=== PATIENT | female | born 2000 | race Caucasian/White ===

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

== ENCOUNTER 2019-01-04 18:06 | Emergency (ER) | payer MEDICAID ==
[~2019-01-04] VITALS: Ht 165.1 cm; Wt 214.0 kg
[2019-01-04 19:01] LABS: BASOPHILS % (AUTO) 0.3 % (0-1); EOSINOPHILS % (AUTO) 0.2 % (0-6); HEMATOCRIT 41.3 % (35.0-45.0); HEMOGLOBIN 14.2 g/dl (12.0-16.0); LYMPHOCYTES # (AUTO) 1.6 X10'3 (1.1-4.8); LYMPHOCYTES % (AUTO) 16.7 % (21-51); MEAN CORPUSCULAR HEMOGLOBIN 29.7 PG (27.0-31.0); MEAN CORPUSCULAR HGB CONC 34.4 g/dL (33.0-36.5); MEAN CORPUSCULAR VOLUME 86.2 FL (78-98); MEAN PLATELET VOLUME 8.1 FL (7.4-10.4); MONOCYTES # (AUTO) 0.3 X10'3 (0-0.9); MONOCYTES % (AUTO) 3.4 % (2-12); NEUTROPHILS # (AUTO) 7.6 X10'3 (1.8-7.7); NEUTROPHILS % (AUTO) 79.4 % (42-75); PLATELET COUNT 261 X10'3 (140-440); RED BLOOD COUNT 4.79 X10'6 (4.20-5.60); RED CELL DISTRIBUTION WIDTH 13.1 % (11.5-14.5); WHITE BLOOD COUNT 9.6 X10'3 (4.5-11.0)
[2019-01-04 19:15] LABS: ALANINE AMINOTRANSFERASE 26 U/L (12-78); ALBUMIN 4.3 G/DL (3.4-5.0); ANION GAP 7 (8-16); ASPARTATE AMINO TRANSFERASE 17 U/L (10-37); BILIRUBIN,TOTAL 0.5 MG/DL (0.1-1.0); BLOOD UREA NITROGEN 9 MG/DL (7-18); BUN/CREATININE RATIO 10.5 (6.6-38.0); CHLORIDE 105 MMOL/L (99-107); CREATININE 0.86 MG/DL (0.40-0.90); GLUCOSE 122 MG/DL (70-104); POTASSIUM 3.6 MMOL/L (3.5-5.1); SODIUM 140 MMOL/L (135-145); TOTAL CARBON DIOXIDE 27.9 MMOL/L (24-32); TOTAL PROTEIN 8.5 G/DL (6.4-8.2); eGFR 85 ML/MIN
[2019-01-04 19:23] LABS: ETHANOL < 0.010 GM/DL (0.0-0.010)
[2019-01-04 19:27] LABS: URINE HCG NEGATIVE (NEG)
[2019-01-04 19:32] LABS: CLARITY,URINE CLEAR (Clear); COLOR,URINE YELLOW (Yellow); GLUCOSE, URINE NEGATIVE (Neg); KETONES,URINE NEGATIVE (Neg); LEUKOCYTE ESTERASE ,URINE NEGATIVE (Neg); NITRITES, URINE NEGATIVE (Neg); OCCULT BLOOD,URINE NEGATIVE (Neg); PROTEIN,URINE NEGATIVE (Neg); UROBILINOGEN,URINE 0.2 E.U/dL (0.2-1.0)
[2019-01-04 19:36] LABS: ALKALINE PHOSPHATASE 87 IU/L (20-180)
[2019-01-04 19:38] LABS: UA COLLECTION TYPE CLN CATCH MIDSTREAM
[2019-01-04 19:39] LABS: URINE AMPHETAMINE SCREEN NEGATIVE (Neg); URINE BARBITUATE SCREEN NEGATIVE (Neg); URINE BENZODIAZEPINES SCREEN NEGATIVE (Neg); URINE CANNABINOID SCREEN NEGATIVE (Neg); URINE COCAINE SCREEN NEGATIVE (Neg); URINE METHADONE SCREEN NEGATIVE (Neg); URINE OPIATE SCREEN NEGATIVE (Neg); URINE PHENCYCLIDINE SCREEN NEGATIVE (Neg)
[2019-01-04] MEDS ORDERED: NO HOME MEDS (19:39)
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
--- NOTE | 2019-01-04 20:14 | NUR ---
The patient is coloring at the bedside. She is calm, friendly and cooperative.
--- NOTE | 2019-01-04 20:15 | NUR ---
Pt Packet Faxed to [facility]
--- NOTE | 2019-01-04 21:03 | NUR ---
Report to [facility] store worker. The patient is resting on her bed.
[2019-01-04 21:56] VITALS: BP 133/97
== END 2019-01-04 22:01 | disposition home or self-care (01) ==
LOC: ER 18:07
DX: F32.9 Major depressive disorder, single episode, unspecified (principal); J45.909 Unspecified asthma, uncomplicated; F10.99 Alcohol use, unspecified with unspecified alcohol-induced disorder; F12.90 Cannabis use, unspecified, uncomplicated; Z98.890 Other specified postprocedural states; Z88.1 Allergy status to other antibiotic agents; Z88.8 Allergy status to other drugs, medicaments and biological substances; Y90.9 Presence of alcohol in blood, level not specified
CPT/HCPCS: 36415; 80053; 80305; 80320; 81003; 81025; 84443; 85025; 99284

== ENCOUNTER 2019-03-11 09:30 | Emergency (ER) | payer MEDICAID ==
[~2019-03-11] VITALS: Ht 165.1 cm; Wt 97.3 kg
[~2019-03-11 09:30] MED LIST changes: -ARIP10TA15 PO; -ESCI5TAB PO; -LITH300C PO; -LITH300T3 PO; -METO-539 PO; +NO HOME MEDS; -QUET50TA22 PO
[2019-03-11 10:12] LABS: BASOPHILS % (AUTO) 0.6 % (0-1); EOSINOPHILS # (AUTO) 0.1 X10'3 (0-0.9); EOSINOPHILS % (AUTO) 1.2 % (0-6); HEMATOCRIT 42.5 % (35.0-45.0); HEMOGLOBIN 14.5 g/dl (12.0-16.0); LYMPHOCYTES % (AUTO) 18.5 % (21-51); MEAN CORPUSCULAR HEMOGLOBIN 28.8 PG (27.0-31.0); MEAN CORPUSCULAR HGB CONC 34.1 g/dL (33.0-36.5); MEAN CORPUSCULAR VOLUME 84.5 FL (78-98); MONOCYTES # (AUTO) 0.5 X10'3 (0-0.9); MONOCYTES % (AUTO) 9.9 % (2-12); NEUTROPHILS # (AUTO) 3.8 X10'3 (1.8-7.7); NEUTROPHILS % (AUTO) 69.8 % (42-75); PLATELET COUNT 207 X10'3 (140-440); RED BLOOD COUNT 5.03 X10'6 (4.20-5.60); RED CELL DISTRIBUTION WIDTH 13.5 % (11.5-14.5); WHITE BLOOD COUNT 5.4 X10'3 (4.5-11.0)
[2019-03-11 10:16] LABS: URINE HCG NEGATIVE (NEG)
[2019-03-11 10:18] LABS: CLARITY,URINE SLIGHTLY CLOUDY (Clear); COLOR,URINE YELLOW (Yellow); GLUCOSE, URINE NEGATIVE (Neg); KETONES,URINE NEGATIVE (Neg); LEUKOCYTE ESTERASE ,URINE NEGATIVE (Neg); NITRITES, URINE NEGATIVE (Neg); OCCULT BLOOD,URINE NEGATIVE (Neg); PROTEIN,URINE NEGATIVE (Neg); UROBILINOGEN,URINE 0.2 E.U/dL (0.2-1.0)
[2019-03-11 10:20] LABS: UA COLLECTION TYPE CLN CATCH MIDSTREAM
[2019-03-11 10:24] LABS: ALANINE AMINOTRANSFERASE 39 U/L (12-78); ALBUMIN 4.1 G/DL (3.4-5.0); ALKALINE PHOSPHATASE 80 IU/L (20-180); ANION GAP 10 (8-16); ASPARTATE AMINO TRANSFERASE 21 U/L (10-37); BILIRUBIN,TOTAL 0.5 MG/DL (0.1-1.0); BLOOD UREA NITROGEN 9 MG/DL (7-18); BUN/CREATININE RATIO 9.7 (6.6-38.0); CALCIUM 8.8 MG/DL (8.5-10.1); CHLORIDE 107 MMOL/L (99-107); CREATININE 0.93 MG/DL (0.40-0.90); GLUCOSE 100 MG/DL (70-104); POTASSIUM 4.1 MMOL/L (3.5-5.1); SODIUM 143 MMOL/L (135-145); TOTAL CARBON DIOXIDE 25.8 MMOL/L (24-32); TOTAL PROTEIN 8.1 G/DL (6.4-8.2); eGFR 78 ML/MIN
[2019-03-11 10:26] LABS: BACTERIA,URINE 1+ /HPF (Neg); MUCUS STRANDS NONE SEEN /LPF (Neg); RBC,URINE NONE SEEN /HPF (0-2); SQUAMOUS EPITHELIAL CELL,UR FEW /LPF (FEW); WBC,URINE 0-4 /HPF (0-4)
[2019-03-11 10:32] LABS: URINE AMPHETAMINE SCREEN NEGATIVE (Neg); URINE BARBITUATE SCREEN NEGATIVE (Neg); URINE BENZODIAZEPINES SCREEN NEGATIVE (Neg); URINE CANNABINOID SCREEN POSITIVE (Neg); URINE COCAINE SCREEN NEGATIVE (Neg); URINE METHADONE SCREEN NEGATIVE (Neg); URINE OPIATE SCREEN NEGATIVE (Neg); URINE PHENCYCLIDINE SCREEN NEGATIVE (Neg)
[2019-03-11 10:33] LABS: ETHANOL < 0.010 GM/DL (0.0-0.010)
--- NOTE | 2019-03-11 10:47 | NUR ---
PACKET FAXED TO [facility].
--- NOTE | 2019-03-11 10:53 | NUR ---
Received pt from triage at 1000. Pt c/o increased s.i. over the past 3-4 days. Pt has a h/o depression and 2 suicide attempts. She was last hospitalized at [facility] March 2017. Pt states she had a recent breakup with her boyfriend and she blames herself and says she's probably being punished, "divine consequence" Pt is cooperative with admission. Pt is slightly labile, smiling one minute and crying the next. Pt generally has flat affect. Pt states she has been diagnosed in the past with bipolar, PTSD and borderline personality d/o.
--- NOTE | 2019-03-11 13:00 | NUR ---
Pt sitting quietly in bed. Pt spoke for a while with a friend. Conversation appeared cordial.
--- NOTE | 2019-03-11 15:00 | NUR ---
Pt resting quietly in bed. No complaints or requests.
--- NOTE | 2019-03-11 17:00 | NUR ---
Pt sitting at bedside being interviewed by [facility]. Pt calm and cooperative.
--- NOTE | 2019-03-11 18:33 | NUR ---
Patient is alert and oriented X4. W/D, she has good color. Patient is sitting up in bed. She makes direct eye contact with this fiction and nonfiction writer prose. Patient speaks in a normal voice, rate, and rhythm. The patient tells this fiction and nonfiction writer prose that she does not feel suicidal at this moment but fears S/I will return. Patient states a history of Borderline Personality Disorder, Bipolar, and depression too. Patient in the past has attempted overdose on Elavil. Previous thoughts of S/I in involve suffocation or hanging. This patient has recently broken up with her boyfriend. She states she had previously cheated on him. The patient also states a history of hypesexuality, she had birthed a baby boy when she was age 12. The child now lives with the fathers parents. This patient denies any emotional connection with the child. She has no contact with that child.
--- NOTE | 2019-03-11 19:10 | NUR ---
Patient is now on a 5150 per [facility].
--- NOTE | 2019-03-11 19:20 | NUR ---
Patient is up to bathroom. She ambulates without problem. Patient uses telephone to call family. In view from nursing station.
--- NOTE | 2019-03-11 20:04 | NUR ---
Patient is coloring. She is cooperative with staff.
--- NOTE | 2019-03-11 20:31 | NUR ---
Patient sleeping on her right side, in view from the nursing station.
--- NOTE | 2019-03-11 20:46 | NUR ---
Nurse to nurse report to ITA Gonzalez at [facility] in [place]. This is a preliminary report only, there is no acceptance at this time.
--- NOTE | 2019-03-11 22:22 | NUR ---
Pt sleeping on right side, no signs of distress. Will continue to monitor.
--- NOTE | 2019-03-12 00:34 | NUR ---
Pt sleeping on left side. No distress noted. Will continue to monitor.
--- NOTE | 2019-03-12 02:09 | NUR ---
Pt sleeping in supine position, breathing even and unlabored. Will continue to monitor.
--- NOTE | 2019-03-12 04:01 | NUR ---
Pt sleeping on left side, no distress noted.
--- NOTE | 2019-03-12 05:49 | NUR ---
Pt sleeping on right side, no distress noted.
--- NOTE | 2019-03-12 06:40 | NUR ---
Patient is resting in bed peacefully on her right side. No distress observed. Will continue to monitor.
--- NOTE | 2019-03-12 08:15 | NUR ---
Patient is sitting up in bed, talking on the phone. Informed patient that she has been accepted at [facility] in [place]. Patient states she needs to "make some more phone calls". She is pleasant and cooperative. No distress observed. Will continue to monitor.
--- NOTE | 2019-03-12 09:24 | NUR ---
Patient was picked up by [facility] tow car driver to transfer to [facility] [place]. All items were inventoried and in her possession at time of discharge. Pt ambulated self, no distress observed. Original 5150 documentation sent with tow car driver. Pt currently denies SI. She was pleasant and cooperative with care. All questions were answered and pt verbalized understanding of current plan.
[2019-03-12 09:28] VITALS: BP 123/78
== END 2019-03-12 09:24 ==
LOC: ER 09:30
DX: F32.9 Major depressive disorder, single episode, unspecified (principal); R45.851 Suicidal ideations; F10.10 Alcohol abuse, uncomplicated; F12.90 Cannabis use, unspecified, uncomplicated; Z88.1 Allergy status to other antibiotic agents; Z88.8 Allergy status to other drugs, medicaments and biological substances; Y90.9 Presence of alcohol in blood, level not specified
CPT/HCPCS: 36415; 80053; 80305; 80320; 81001; 81025; 84443; 85025; 99285

== ENCOUNTER → 2019-03-20 | Emergency (ER) | payer MEDICAID, OTHER ==
[~2019-03-20] VITALS: Ht 165.1 cm; Wt 104.1 kg
[2019-03-20 03:12] LABS: URINE HCG NEGATIVE (NEG)
[2019-03-20 03:23] LABS: ALANINE AMINOTRANSFERASE 101 U/L (12-78); ALBUMIN 3.9 G/DL (3.4-5.0); ALBUMIN/GLOBULIN RATIO 1.1 (1.1-1.5); ALKALINE PHOSPHATASE 76 IU/L (20-180); ANION GAP 6 (8-16); ASPARTATE AMINO TRANSFERASE 65 U/L (10-37); BILIRUBIN,TOTAL 0.7 MG/DL (0.1-1.0); BLOOD UREA NITROGEN 6 MG/DL (7-18); BUN/CREATININE RATIO 7.5 (6.6-38.0); CALCIUM 8.8 MG/DL (8.5-10.1); CHLORIDE 103 MMOL/L (99-107); ETHANOL < 0.010 GM/DL (0.0-0.010); POTASSIUM 3.6 MMOL/L (3.5-5.1); SODIUM 137 MMOL/L (135-145); TOTAL CARBON DIOXIDE 27.8 MMOL/L (24-32); TOTAL PROTEIN 7.6 G/DL (6.4-8.2); eGFR > 90 ML/MIN
[2019-03-20 03:26] LABS: URINE AMPHETAMINE SCREEN NEGATIVE (Neg); URINE BARBITUATE SCREEN NEGATIVE (Neg); URINE BENZODIAZEPINES SCREEN NEGATIVE (Neg); URINE CANNABINOID SCREEN NEGATIVE (Neg); URINE COCAINE SCREEN NEGATIVE (Neg); URINE METHADONE SCREEN NEGATIVE (Neg); URINE OPIATE SCREEN NEGATIVE (Neg); URINE PHENCYCLIDINE SCREEN NEGATIVE (Neg)
[2019-03-20 03:27] LABS: GLUCOSE 90 MG/DL (70-104)
[2019-03-20 03:49] LABS: BASOPHILS # (AUTO) 0.1 X10'3 (0-0.2); EOSINOPHILS # (AUTO) 0.1 X10'3 (0-0.9); EOSINOPHILS % (AUTO) 1.4 % (0-6); HEMATOCRIT 37.9 % (35.0-45.0); HEMOGLOBIN 13.2 g/dl (12.0-16.0); LYMPHOCYTES # (AUTO) 2.9 X10'3 (1.1-4.8); LYMPHOCYTES % (AUTO) 42.7 % (21-51); MEAN CORPUSCULAR HGB CONC 34.7 g/dL (33.0-36.5); MEAN CORPUSCULAR VOLUME 83.4 FL (78-98); MEAN PLATELET VOLUME 9.4 FL (7.4-10.4); MONOCYTES # (AUTO) 0.5 X10'3 (0-0.9); MONOCYTES % (AUTO) 6.9 % (2-12); NEUTROPHILS # (AUTO) 3.2 X10'3 (1.8-7.7); PLATELET COUNT 125 X10'3 (140-440); RED BLOOD COUNT 4.54 X10'6 (4.20-5.60); RED CELL DISTRIBUTION WIDTH 14.2 % (11.5-14.5); WHITE BLOOD COUNT 6.7 X10'3 (4.5-11.0)
[2019-03-20 04:02] VITALS: BP 108/83
== END | disposition home or self-care (01) ==
LOC: ER 05:11
DX: R00.2 Palpitations (principal); J45.909 Unspecified asthma, uncomplicated; I47.1 Supraventricular tachycardia; F31.9 Bipolar disorder, unspecified; F12.90 Cannabis use, unspecified, uncomplicated; Z88.1 Allergy status to other antibiotic agents; Z88.8 Allergy status to other drugs, medicaments and biological substances
CPT/HCPCS: 36415; 80053; 80178; 80305; 80320; 81025; 85025; 93005; 99284

== ENCOUNTER 2019-05-13 21:42 | Emergency (ER) | payer MEDICAID, OTHER ==
[~2019-05-13] VITALS: Ht 165.1 cm; Wt 100.0 kg
[2019-05-13 21:45] VITALS: BP 150/98
== END 2019-05-13 22:22 | disposition left against medical advice (07) ==
LOC: ER 21:43
DX: R10.9 Unspecified abdominal pain (principal); J45.909 Unspecified asthma, uncomplicated; F31.9 Bipolar disorder, unspecified; F12.90 Cannabis use, unspecified, uncomplicated; Z88.1 Allergy status to other antibiotic agents; Z88.8 Allergy status to other drugs, medicaments and biological substances
CPT/HCPCS: 99281

== ENCOUNTER 2019-05-20 12:27 | Emergency (ER) | payer MEDICAID ==
[~2019-05-20] VITALS: Ht 165.1 cm; Wt 104.5 kg
[2019-05-20 13:23] VITALS: BP 120/70
[2019-05-20] MEDS ORDERED: TRAM50TA2 PO (15:37)
== END 2019-05-20 15:43 | disposition home or self-care (01) ==
LOC: ER 12:28
DX: M53.3 Sacrococcygeal disorders, not elsewhere classified (principal); J45.909 Unspecified asthma, uncomplicated; F31.9 Bipolar disorder, unspecified; F12.90 Cannabis use, unspecified, uncomplicated; Z98.890 Other specified postprocedural states; Z88.0 Allergy status to penicillin; Z88.1 Allergy status to other antibiotic agents; Z88.8 Allergy status to other drugs, medicaments and biological substances
CPT/HCPCS: 99283

== ENCOUNTER 2019-06-22 12:00 | Emergency (ER) | payer MEDICAID ==
[~2019-06-22] VITALS: Ht 165.1 cm; Wt 104.9 kg
--- NOTE | 2019-06-22 12:28 | NUR ---
POISON CONTROL CALLED; RECOMMENDATION: NO CHARCOLE AT THIS TIME DUE TO DROUSINESS SEIZURE PERCAUTIONS. TYLENOL AND ASA LEVELS OBSERVE FOR [address] LUCIO INFORMED
[2019-06-22] MEDS ORDERED: normal saline 1000ML IV soln IVB ONE (12:45)
[2019-06-22 13:25] LABS: BASOPHILS % (AUTO) 0.3 % (0-1); EOSINOPHILS # (AUTO) 0.1 X10'3 (0-0.9); EOSINOPHILS % (AUTO) 0.9 % (0-6); HEMATOCRIT 39.9 % (35.0-45.0); HEMOGLOBIN 13.4 g/dl (12.0-16.0); LYMPHOCYTES % (AUTO) 22.5 % (21-51); MEAN CORPUSCULAR HEMOGLOBIN 28.3 PG (27.0-31.0); MEAN CORPUSCULAR HGB CONC 33.6 g/dL (33.0-36.5); MEAN CORPUSCULAR VOLUME 84.3 FL (78-98); MONOCYTES # (AUTO) 0.5 X10'3 (0-0.9); MONOCYTES % (AUTO) 5.7 % (2-12); NEUTROPHILS # (AUTO) 6.3 X10'3 (1.8-7.7); NEUTROPHILS % (AUTO) 70.6 % (42-75); PLATELET COUNT 231 X10'3 (140-440); RED BLOOD COUNT 4.73 X10'6 (4.20-5.60); RED CELL DISTRIBUTION WIDTH 13.8 % (11.5-14.5)
[2019-06-22 13:39] LABS: PARTIAL THROMBOPLASTIN TIME 27 SECONDS (22-32)
[2019-06-22 13:41] LABS: ALANINE AMINOTRANSFERASE 33 U/L (12-78); ALBUMIN 3.9 G/DL (3.4-5.0); ALKALINE PHOSPHATASE 68 IU/L (20-180); ANION GAP 7 (8-16); ASPARTATE AMINO TRANSFERASE 16 U/L (10-37); BILIRUBIN,TOTAL 0.4 MG/DL (0.1-1.0); BLOOD UREA NITROGEN 8 MG/DL (7-18); BUN/CREATININE RATIO 9.8 (6.6-38.0); CHLORIDE 103 MMOL/L (99-107); CREATININE 0.82 MG/DL (0.40-0.90); GLUCOSE 94 MG/DL (70-104); POTASSIUM 4.2 MMOL/L (3.5-5.1); SODIUM 138 MMOL/L (135-145); TOTAL CARBON DIOXIDE 27.7 MMOL/L (24-32); TOTAL PROTEIN 7.8 G/DL (6.4-8.2); eGFR 90 ML/MIN
[2019-06-22 13:49] LABS: ETHANOL < 0.010 GM/DL (0.0-0.010)
[2019-06-22 13:50] LABS: ACETAMINOPHEN < 2.0 UG/ML (10-30)
[2019-06-22 14:57] LABS: URINE HCG NEGATIVE (NEG)
[2019-06-22 15:00] LABS: CLARITY,URINE CLEAR (Clear); COLOR,URINE YELLOW (Yellow); GLUCOSE, URINE NEGATIVE (Neg); KETONES,URINE NEGATIVE (Neg); LEUKOCYTE ESTERASE ,URINE NEGATIVE (Neg); NITRITES, URINE NEGATIVE (Neg); OCCULT BLOOD,URINE NEGATIVE (Neg); PH,URINE 5.5 (4.8-8.0); PROTEIN,URINE NEGATIVE (Neg); UROBILINOGEN,URINE 0.2 E.U/dL (0.2-1.0)
[2019-06-22 15:01] LABS: UA COLLECTION TYPE CLN CATCH MIDSTREAM
[2019-06-22 15:06] LABS: URINE AMPHETAMINE SCREEN NEGATIVE (Neg); URINE BARBITUATE SCREEN NEGATIVE (Neg); URINE BENZODIAZEPINES SCREEN NEGATIVE (Neg); URINE CANNABINOID SCREEN POSITIVE (Neg); URINE COCAINE SCREEN NEGATIVE (Neg); URINE METHADONE SCREEN NEGATIVE (Neg); URINE OPIATE SCREEN NEGATIVE (Neg); URINE PHENCYCLIDINE SCREEN NEGATIVE (Neg)
--- NOTE | 2019-06-22 16:46 | NUR ---
SPOKE WITH POSION CONTROL AND UPDATED ON LABS AND VITAL SIGNS
--- NOTE | 2019-06-22 17:43 | NUR ---
TALKED WITH MOTHER OF PT KIANNA, THAT PT MAY NEED RIDE IN 1-2 HR, PT DID NOT WANT ANY OTHER INFO GIVEN
--- NOTE | 2019-06-22 19:11 | NUR ---
SPOKE WITH PATIENTS MOTHER THAT PT WILL BE DISCHARGED SOON AND NEEDS A RIDE, MOTHER WILL CALL FATHER TO PICK PT UP
[2019-06-22 19:46] VITALS: BP 109/56
== END 2019-06-22 19:50 | disposition home or self-care (01) ==
LOC: ER 12:00
DX: T40.4X2A Poisoning by other synthetic narcotics, intentional self-harm, initial encounter (principal); F32.9 Major depressive disorder, single episode, unspecified; F12.90 Cannabis use, unspecified, uncomplicated; Z88.1 Allergy status to other antibiotic agents; Z88.8 Allergy status to other drugs, medicaments and biological substances
CPT/HCPCS: 36415; 71045; 80053; 80305; 80320; 80329; 81003; 81025; 84443; 85025; 85610; 85730; 93005; 99285; J7030